=== PATIENT | female | born 1965 | race American Indian/Alaskan Native ===

== ENCOUNTER 2020-08-20 17:52 | Emergency (ER) | payer OTHER ==
--- NOTE | 2020-08-20 18:32 | Event Note ---
ED Screening Note Date of service: 08/20/20 Time: 18:30 ED Screening Note: c/o right sided chest pressure and pain x 6 days hx of HTN denies SOB PE: RRR A&O x 3 This initial assessment/diagnostic orders/clinical plan/treatment(s) is/are subject to change based on patients health status, clinical progression and re- assessment by fellow clinical providers in the ED. Further treatment and workup at subsequent clinical providers discretion. Patient/guardian urged not to elope from the ED as their condition may be serious if not clinically assessed and managed. Initial orders include: labs ekg cxr
--- NOTE | 2020-08-20 19:11 | XRay Report ---
CHEST 2 VIEWS 1845 INDICATION / CLINICAL INFORMATION: Chest Pain COMPARISON: None available. FINDINGS: SUPPORT DEVICES: None. HEART / MEDIASTINUM: No significant abnormality. LUNGS / PLEURA: Patient's brassiere was left in place. Lung nickerson appear clear. No pleural effusions are seen. No pneumothorax. ADDITIONAL FINDINGS: No significant additional findings. IMPRESSION: No significant acute abnormality Signer Name: Ang Rodriguez MD Signed: 08/20/2020 7:07 PM Workstation Name: [id number]
[2020-08-20 19:30] LABS: Basophils % (Auto) 0.2 % (0.0-1.8); Eosinophils # (Auto) 0.1 K/mm3 (0.0-0.4); Eosinophils % (Auto) 1.3 % (0.0-4.3); Hematocrit 35.4 % (30.3-42.9); Hemoglobin 11.7 gm/dl (10.1-14.3); Lymphocytes # (Auto) 2.2 K/mm3 (1.2-5.4); Lymphocytes % (Auto) 29.8 % (13.4-35.0); Mean Corpuscular HGB Conc 33 % (30-34); Mean Corpuscular Volume 89 fl (79-97); Monocytes # (Auto) 0.6 K/mm3 (0.0-0.8); Monocytes % (Auto) 8.9 % (0.0-7.3); Platelet Count 216 K/mm3 (140-440); Red Cell Distribution Width 12.6 % (13.2-15.2)
[2020-08-20 19:51] LABS: Alanine Aminotransferase 41 units/L (7-56); Albumin 4.6 g/dL (3.9-5); BUN/Creatinine Ratio 25; Blood Urea Nitrogen 15 mg/dL (7-17); Calcium 9.8 mg/dL (8.4-10.2); Hemolysis Index 5
[2020-08-20] MEDS ORDERED: NITROGLYCERIN 0.4 MG TAB SUBL SL ONE (21:16)
[2020-08-20] MEDS ORDERED: ASPIRIN 81 MG TAB CHEW PO ONE (21:16)
--- NOTE | 2020-08-20 21:19 | Emergency Department Report ---
ED Chest Pain HPI - General Chief Complaint: Chest Pain Stated Complaint: CHEST PAINS Time Seen by Provider: 08/20/20 18:27 Source: patient Mode of arrival: Ambulatory Limitations: No Limitations - History of Present Illness Initial Comments: Patient is 55 years old female with history of hypertension and high cholesterol. Patient presented to the ER complaining of chest pain described as substernal and to the right side of the chest also. Patient denied any left sided chest pain. She also denies any shortness of breath. No fever chills or cough recently. MD Complaint: chest pain -: days(s) (3) Onset: during rest Pain Location: substernal, right chest Pain Radiation: none Severity: moderate Severity scale (0 -10): 5 Quality: pressure Consistency: intermittent - Related Data Previous Rx's Medication Instructions Recorded Last Taken Type Acetaminophen/Codeine 1 tab PO Q6H PRN #20 tab 08/28/14 Unknown Rx [Acetaminophen-Codeine #3 TAB] Acetaminophen/Codeine [Tylenol #3] 1 tab PO Q8H PRN #12 tablet 07/18/15 Unknown Rx Fluticasone [Flonase] 1 spray NS QDAY #1 bottle 07/18/15 Unknown Rx methylPREDNISolone [Medrol Dose 4 mg PO QAM #1 pack 07/18/15 Unknown Rx [facility]] traMADoL [Ultram] 50 mg PO Q6HR PRN #20 tablet 08/21/20 Unknown Rx Allergies Allergy/AdvReac Type Severity Reaction Status Date / Time No Known Allergies Allergy Unverified 08/28/14 10:43 Heart Score - HEART Score History: Slightly suspicious EKG: Non-specific Age: 45-65 Risk factors: 1-2 risk factors Troponin: < normal limit HEART Score: 3 - Critical Actions Critical Actions: 0-3 pts:0.9-1.7%risk of adverse cardiac event.Candidate for discharge ED Review of Systems ROS: Stated complaint: CHEST PAINS Other details as noted in HPI Comment: All other systems reviewed and negative Constitutional: denies: chills, fever Respiratory: denies: cough, shortness of breath, SOB with exertion, SOB at rest Cardiovascular: chest pain. denies: palpitations, dyspnea on exertion Gastrointestinal: denies: abdominal pain, nausea, vomiting, diarrhea, consti pation, hematemesis, melena, hematochezia Musculoskeletal: denies: back pain Neurological: denies: headache, weakness, numbness, paresthesias, confusion ED Past Medical Hx - Past Medical History Previous Medical History?: Yes Hx Hypertension: Yes - Surgical History Past Surgical History?: Yes Additional Surgical History: tubal ligation - Social History Smoking Status: Never Smoker Substance Use Type: None - Medications Home Medications: Home Medications Medication Instructions Recorded Confirmed Last Taken Type Acetaminophen/Codeine 1 tab PO Q6H PRN #20 tab 08/28/14 Unknown Rx [Acetaminophen-Codeine #3 TAB] Acetaminophen/Codeine [Tylenol #3] 1 tab PO Q8H PRN #12 tablet 07/18/15 Unknown Rx Fluticasone [Flonase] 1 spray NS QDAY #1 bottle 07/18/15 Unknown Rx methylPREDNISolone [Medrol Dose 4 mg PO QAM #1 pack 07/18/15 Unknown Rx [facility]] traMADoL [Ultram] 50 mg PO Q6HR PRN #20 tablet 08/21/20 Unknown Rx ED Physical Exam - General Limitations: No Limitations General appearance: alert, in no apparent distress - Head Head exam: Present: atraumatic, normocephalic, normal inspection - Eye Eye exam: Present: normal appearance - ENT ENT exam: Present: normal exam, normal orophraynx, mucous membranes moist - Neck Neck exam: Present: normal inspection, full ROM. Absent: tenderness, meningismus, lymphadenopathy, thyromegaly - Respiratory Respiratory exam: Present: normal lung sounds bilaterally - Cardiovascular Cardiovascular Exam: Present: regular rate, normal rhythm, normal heart sounds - GI/Abdominal GI/Abdominal exam: Present: soft, normal bowel sounds. Absent: distended, tenderness, guarding, rebound, rigid, organomegaly, mass, bruit, pulsatile mass, hernia - Extremities Exam Extremities exam: Present: normal inspection, full ROM, normal capillary refill. Absent: pedal edema, calf tenderness - Back Exam Back exam: Present: normal inspection, full ROM. Absent: CVA tenderness (R), CVA tenderness (L) - Neurological Exam Neurological exam: Present: alert, oriented X3, CN II-XII intact, normal gait, reflexes normal. Absent: motor sensory deficit - Psychiatric Psychiatric exam: Present: normal mood - Skin Skin exam: Present: warm, intact, normal color ED Course Vital Signs 08/20/20 08/20/20 08/20/20 18:30 23:28 23:30 Temperature 98.4 F 98.2 F 98.2 F Pulse Rate 80 81 79 Respiratory 18 16 16 Rate Blood Pressure 184/99 174/81 Blood Pressure 174/81 [Left] O2 Sat by Pulse 100 98 99 Oximetry 08/21/20 01:35 Temperature Pulse Rate 70 Respiratory 17 Rate Blood Pressure Blood Pressure [Left] O2 Sat by Pulse 97 Oximetry ED Medical Decision Making - Lab Data Result diagrams: 08/20/20 18:43 08/20/20 18:43 - EKG Data -: EKG Interpreted by Me EKG shows normal: sinus rhythm Rate: normal - EKG Data Interpretation: no acute changes - Radiology Data Radiology results: report reviewed Critical care attestation.: If time is entered above; I have spent that time in minutes in the direct care of this critically ill patient, excluding procedure time. ED Disposition Clinical Impression: Chest pain Disposition: DC-01 TO HOME OR SELFCARE Is pt being admited?: No Condition: Stable Instructions: Chest Pain (ED) Additional Instructions: CT scan of your chest did not show any evidence of any pulmonary embolism Prescriptions: traMADoL [Ultram] 50 mg PO Q6HR PRN #20 tablet PRN Reason: Pain Referrals: BHAVNA BARRY MD [Staff Physician] - 3-5 Days PRIMARY CAREMD [Primary Care Provider] - 3-5 Days
[2020-08-20 21:48] LABS: INR 0.95 (0.87-1.13); Partial Thromboplastin Time 28.3 Sec. (24.2-36.6)
[2020-08-20 23:30] VITALS: BP 174/81
--- NOTE | 2020-08-20 23:57 | Cat Scan Report ---
CTA of the chest with 3D Reconstruction Indication: ,P.E. PROTOCOL!! RIGHT sided chest pain with elevated D-dimer Technique: TECHNIQUE: Axial CT images were obtained through the chest after injection of 100 cc of Omnipaque 350 IV contrast. 3 plane MIP reconstructions were produced. All CT scans at this location are performed using CT dose reduction for ALARA by means of automated exposure control. COMPARISON: None Automatic exposure control was utilized in an attempt to reduce radiation dose. Findings: Pulmonary arteries: The main pulmonary artery and right and left pulmonary artery branches fill satis factorily with contrast. No pulmonary embolus is seen. Lungs: The lungs are clear. Mediastinum: Heart size is normal. No adenopathy is seen. Aorta: Normal in diameter. No dissection seen within limits of this exam. Impression: No pulmonary embolus is seen Signer Name: Damion Barnett MD Signed: 08/20/2020 11:53 PM Workstation Name: [id number]
== END 2020-08-21 01:35 | disposition home or self-care (01) ==
LOC: ED 17:52
DX: R07.9 Chest pain, unspecified (principal); I10 Essential (primary) hypertension; E78.00 Pure hypercholesterolemia, unspecified; Z79.899 Other long term (current) drug therapy; Z98.51 Tubal ligation status
CPT/HCPCS: 36415; 71046; 71275; 80053; 84484; 85025; 85379; 85610; 85730; 93005; 99284; Q9967